=== PATIENT | male | born 1995 | race Two or more races ===

== ENCOUNTER 2020-01-17 06:26 | Emergency (ER) | payer BC ==
--- NOTE | 2020-01-17 07:27 | RADIOLOGY REPORT (SQ) ---
Right hand radiographs: 01/17/2020 6:26 AM CDT TECHNIQUE: AP, lateral, oblique images of the right hand were obtained. HISTORY: 24-year-old patient with history of right hand pain, trauma. COMPARISON: None available FINDINGS: There is acute fracture through the right fifth metacarpal head and neck which is mildly angulated with the apex facing in a dorsal direction. Portions of the six. Extensive the fifth metacarpal phalangeal joint. There is diffuse overlying soft tissue swelling. IMPRESSION: There is an acute fracture through the right fifth metacarpal head and neck.
[2020-01-17] MEDS ORDERED: CEPHALEXIN 500 MG CAPSULE PO ONE (08:44)
[2020-01-17] MEDS ORDERED: OXYCODONE-ACETAMINOPHEN 5-325 MG TABLET PO ONE (08:44)
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
[2020-01-17 09:31] VITALS: BP 110/54
== END 2020-01-17 10:05 | disposition home or self-care (01) ==
LOC: ER 06:26
DX: S62.336A Displaced fracture of neck of fifth metacarpal bone, right hand, initial encounter for closed fracture (principal); S62.396A Other fracture of fifth metacarpal bone, right hand, initial encounter for closed fracture; S61.411A Laceration without foreign body of right hand, initial encounter; S61.212A Laceration without foreign body of right middle finger without damage to nail, initial encounter; S61.214A Laceration without foreign body of right ring finger without damage to nail, initial encounter; S61.216A Laceration without foreign body of right little finger without damage to nail, initial encounter; W25.XXXA Contact with sharp glass, initial encounter; Y92.009 Unspecified place in unspecified non-institutional (private) residence as the place of occurrence of the external cause; F17.200 Nicotine dependence, unspecified, uncomplicated
CPT/HCPCS: 99283